=== PATIENT | female | born 1950 | race Caucasian/White ===

== ENCOUNTER 2017-03-08 06:19 | Day surgery (SDC) | payer MEDICARE, OTHER ==
[~2017-03-08] VITALS: Ht 157.5 cm; Wt 59.4 kg
[2017-03-08 06:48] VITALS: Ht 157.5 cm; Wt 59.4 kg
[2017-03-08] MEDS ORDERED: LISI-313 PO (06:56)
[2017-03-08 07:02] VITALS: BP 147/72; PULSE 68; RESP 16
[2017-03-08] MEDS ORDERED: MIDAZOLAM 1 MG/ML 2 ML INJ ONE ×2 (07:52)
[2017-03-08] MEDS ORDERED: FENTAnyl 50 MCG/ML VIAL ONE (07:53)
[2017-03-08 08:14] VITALS: BP 118/61; RESP 20
--- NOTE | 2017-03-08 08:22 | GILP ---
DATE OF PROCEDURE: NAME OF PROCEDURES: 1. Esophagogastroduodenoscopy and biopsy. 2. Colonoscopy. SURGEON: Grant Ramires MD PREOPERATIVE DIAGNOSES: 1. Chronic heartburn. 2. Screening colonoscopy. POSTOPERATIVE DIAGNOSES: 1. Reflux esophagitis and erosions and ulcer at the lower end of the esophagus. 2. Gastritis with multiple erosions. 3. Gastric mucosal biopsies are positive for Helicobacter pylori infection. 4. Colonoscopy all the way to the cecum. 5. Diverticulosis of the colon. 6. Internal hemorrhoids. INDICATION FOR THE PROCEDURE: Ms. Lauryn Gorman is a 66-year-old female patient who had chronic hea rtburn not responding to therapy. She also needed screening colonoscopy. The procedures and possible complications are well explained to the patient. She understood and con sented to the procedure. DESCRIPTION OF PROCEDURE: Under the influence of fentanyl and Versed, the gastroscope was carefully introduced into the esophagus and under direct vision, it was advanced to the stomach and through t he pylorus into the duodenal bulb and descending duodenum. FINDINGS: ESOPHAGUS: The patient had reflux esophagitis with erosions. There is an ulcer at the lower end of the esophagus. STOMACH: The patient had gastritis with severe erosions. Gastric mucosal biopsies are positive for Helicobacter pylori infection. DUODENUM: Normal. The colonoscope was carefully introduced in the rectum and under direct vision, it was advanced all the way to the cecum. FINDINGS: The patient had diverticulosis of the colon. She also had internal hemorrhoids. No colo n neoplasm was identified. She tolerated the procedures very well and there was no complication from the procedures. At the en d of the procedures, she was awake with stable vital signs, and she was discharged home to the care of her family. IMPRESSION: Please see postoperative diagnosis. PLAN: 1. Omeprazole 40 mg p.o. every morning. 2. Zantac 300 mg p.o. b.i.d. for 14 days. 3. Doxycycline 100 mg p.o. b.i.d. for 14 days. 4. Flagyl 500 mg p.o. b.i.d. for 14 days. 5. Pepto-Bismol 2 tablets p.o. q.i.d. for 14 days. Next screening colonoscopy in 10 years. Dictated By: GRANT ROSE/HARINI Conf#: [id number] [facility]#: [id number]
== END 2017-03-08 08:31 | disposition home or self-care (01) ==
LOC: GIL 06:19
PROVIDERS: ATTEND Internal Medicine Gastroenterology
DX: Z12.11 Encounter for screening for malignant neoplasm of colon (principal); K21.0 Gastro-esophageal reflux disease with esophagitis; K29.60 Other gastritis without bleeding; K57.90 Diverticulosis of intestine, part unspecified, without perforation or abscess without bleeding; K64.8 Other hemorrhoids; I10 Essential (primary) hypertension
CPT/HCPCS: 43239; 45378; 87081; J2250; J3010